=== PATIENT | female | born 1970 | race Caucasian/White ===

== ENCOUNTER 2020-09-04 22:08 | Emergency (ER) | payer MEDICAID ==
[~2020-09-04] VITALS: Ht 162.5 cm; Wt 95.3 kg
[2020-09-04] MEDS ORDERED: PENICILLIN VK500 MG PO (22:26)
== END 2020-09-04 22:36 | disposition home or self-care (01) ==
LOC: ED 22:08
DX: K02.9 Dental caries, unspecified (principal); K08.89 Other specified disorders of teeth and supporting structures

== ENCOUNTER 2020-09-19 16:32 | Emergency (ER) | payer OTHER ==
[~2020-09-19] VITALS: Ht 160 cm; Wt 94.3 kg
[~2020-09-19 16:32] MED LIST: PENICILLIN VK500 MG PO
== END 2020-09-19 17:43 | disposition home or self-care (01) ==
LOC: ED 16:32
DX: K08.89 Other specified disorders of teeth and supporting structures (principal); I10 Essential (primary) hypertension; E11.9 Type 2 diabetes mellitus without complications; Z79.2 Long term (current) use of antibiotics; Z98.890 Other specified postprocedural states

== ENCOUNTER 2020-10-11 12:44 | Emergency (ER) | payer OTHER ==
[~2020-10-11] VITALS: Ht 160 cm; Wt 93.0 kg
[2020-10-11] MEDS ORDERED: IBU800 MG PO (13:40)
[2020-10-11] MEDS ORDERED: PERCOCET 5-3251 EACH PO (13:40)
[2020-10-11] MEDS ORDERED: CLEOCIN HCL150 MG PO (13:40)
== END 2020-10-11 13:48 | disposition home or self-care (01) ==
LOC: ED 12:44
DX: K04.7 Periapical abscess without sinus (principal); Z79.2 Long term (current) use of antibiotics

== ENCOUNTER 2020-10-23 18:23 | Emergency (ER) | payer OTHER ==
[~2020-10-23] VITALS: Ht 160 cm; Wt 93.0 kg
[~2020-10-23 18:23] MED LIST changes: +CLEOCIN HCL150 MG PO; +IBU800 MG PO; +PERCOCET 5-3251 EACH PO
[2020-10-23] MEDS ORDERED: AUGMENTIN 875875 MG PO (19:16)
== END 2020-10-23 19:20 | disposition home or self-care (01) ==
LOC: ED 18:23
DX: K08.89 Other specified disorders of teeth and supporting structures (principal); I10 Essential (primary) hypertension; E11.9 Type 2 diabetes mellitus without complications; E03.9 Hypothyroidism, unspecified; Z98.890 Other specified postprocedural states; Z79.899 Other long term (current) drug therapy

== ENCOUNTER 2021-03-08 04:16 | Emergency (ER) | payer OTHER ==
[~2021-03-08] VITALS: Ht 162.5 cm; Wt 93.4 kg
[~2021-03-08 04:16] MED LIST changes: +AUGMENTIN 875875 MG PO
== END 2021-03-08 06:35 | disposition left against medical advice (07) ==
LOC: ED 04:16
DX: S00.11XA Contusion of right eyelid and periocular area, initial encounter (principal); Z79.2 Long term (current) use of antibiotics; Z79.899 Other long term (current) drug therapy; W19.XXXA Unspecified fall, initial encounter; Y93.89 Activity, other specified; Y92.89 Other specified places as the place of occurrence of the external cause; Y99.8 Other external cause status

== ENCOUNTER → 2021-05-26 | Outpatient (CLI) | payer OTHER | END | disposition home or self-care (01) | LOC: COVID19 15:04 | PROVIDERS: ATTEND Internal Medicine | DX: Z11.52 Encounter for screening for COVID-19 (principal) ==

== ENCOUNTER → 2021-06-04 | Outpatient (CLI) | payer OTHER ==
[2021-06-05 07:06] LABS: HEP B CORE AB, IGM Negative (Negative); HEPATITIS B SURFACE AG Negative (Negative)
[2021-06-09 08:49] LABS: HEPATITIS C VIRUS ANTIBODY >11.0 s/co (0.0-0.9)
== END | disposition home or self-care (01) ==
LOC: LAB 07:50
PROVIDERS: ATTEND Internal Medicine
DX: M47.816 Spondylosis without myelopathy or radiculopathy, lumbar region (principal); M25.78 Osteophyte, vertebrae; R74.8 Abnormal levels of other serum enzymes; R06.02 Shortness of breath

== ENCOUNTER → 2021-06-15 | Outpatient (CLI) | payer OTHER ==
[2021-06-16 08:08] LABS: RHEUMATOID ARTHRITIS FACTOR <10.0 IU/mL (<14.0)
[2021-06-16 20:07] LABS: HEPATITIS C QUANTITATION 5180000 IU/mL (.)
== END | disposition home or self-care (01) ==
LOC: LAB 09:46 → US 10:00
PROVIDERS: ATTEND Internal Medicine
DX: R76.8 Other specified abnormal immunological findings in serum (principal)

== ENCOUNTER → 2021-06-24 | Outpatient (CLI) | payer OTHER ==
[2021-06-24 08:27] LABS: BILIRUBIN Negative (Negative); BLOOD Negative (Negative); CLARITY Cloudy (Clear); COLOR Yellow (Yellow); GLUCOSE Negative (Negative); KETONE Negative (Negative); LEUKO ESTERASE Negative (Negative); NITRITE Negative (Negative); PH 5.5 (4.5-8.0); UROBILINOGEN 0.2 E.U./dl (0.0-1.0)
[2021-06-24 08:37] LABS: BACTERIA 1+; CALCIUM OXALATE CRYSTALS 1+
[2021-06-24 08:38] LABS: MUCOUS 2+
== END | disposition home or self-care (01) ==
LOC: LAB 07:52
PROVIDERS: ATTEND Internal Medicine
DX: B18.2 Chronic viral hepatitis C (principal)

== ENCOUNTER → 2021-10-16 | Outpatient (CLI) | payer OTHER ==
[2021-10-16 10:56] LABS: BASO # 0.1 10*3/uL (0.0-0.1); BASO % 0.8 % (0.0-1.0); EOS # 0.8 10*3/uL (0.0-0.4); EOS % 9.2 % (1.0-4.0); HEMATOCRIT 42.8 % (37.0-47.0); LYMPH # 1.8 10*3/uL (1.3-4.4); LYMPH % 20.1 % (27.0-41.0); MEAN CELL VOLUME 92.2 fl (81.0-99.0); MEAN CORPUSCULAR HGB 31.3 pg (27.0-31.0); MEAN CORPUSCULAR HGB CONC 33.9 g/dl (33.0-37.0); MEAN PLATELET VOLUME 12.9 fl (9.6-12.3); MONO # 0.7 10*3/uL (0.1-1.0); MONO % 7.3 % (3.0-9.0); NEUT # 5.7 10*3/uL (2.3-7.9); NEUT % 62.1 % (47.0-73.0); PLATELET COUNT AUTOMATED 163 10*3/uL (130-400); RED BLOOD COUNT 4.64 10*6/uL (4.10-5.10); RED CELL DISTRI WIDTH 11.6 % (0-14.5); WHITE BLOOD COUNT 9.2 10*3/uL (4.8-10.8)
[2021-10-16 11:04] LABS: URINE AMPHETAMINES < 1000 (1000ng/ml); URINE BARBITURATES < 200 (200ng/ml); URINE BENZODIAZEPINES < 200 (200ng/ml); URINE CANNABINOIDS (THC) > 50 (50ng/ml); URINE COCAINE < 300 (300ng/ml); URINE METHADONE < 300 (300ng/ml); URINE OPIATES < 300 (300ng/ml)
[2021-10-16 11:11] LABS: URINE PHENCYCLIDINE < 25 (25ng/ml)
[2021-10-16 11:25] LABS: BUN 25 mg/dl (7-24); CHLORIDE 112 mmol/L (98-107); POTASSIUM 4.3 mmol/L (3.5-5.1); SODIUM 138 mmol/L (136-145)
[2021-10-16 11:35] LABS: ALKALINE PHOSPHATASE 166 U/L (45-117); CREATININE 0.71 mg/dL (0.55-1.02); FREE T4 0.92 ng/dl (0.76-1.46); IRON 146 ug/dL (50-170); SGOT/AST 21 IU/L (3-35); SGPT/ALT 36 U/L (12-78); TOTAL IRON BINDING CAPACITY 360 ug/dl (250-450); TOTAL PROTEIN 7.5 gm/dL (6.4-8.2)
[2021-10-16 12:00] LABS: FERRITIN 69.7 ng/mL (10.0-291.0)
[2021-10-17 04:03] LABS: RHEUMATOID FACTOR <10.0 IU/mL (<14.0)
[2021-10-17 08:05] LABS: HEP B CORE AB, IGM Negative (Negative); HEPATITIS B SURFACE AB Non Reactive (.); HEPATITIS B SURFACE AG Negative (Negative); HEPATITIS C VIRUS ANTIBODY >11.0 s/co (0.0-0.9)
[2021-10-17 20:04] LABS: HCV LOG10 7.367 (.); HEPATITIS C QNT See Final Results IU/mL (.)
== END | disposition home or self-care (01) ==
LOC: LAB 10:13
PROVIDERS: Nurse Practitioner Family; ATTEND Internal Medicine
DX: B18.2 Chronic viral hepatitis C (principal)

== ENCOUNTER 2021-10-23 14:40 | Emergency (ER) | payer OTHER ==
[~2021-10-23] VITALS: Ht 160 cm; Wt 95.3 kg
[2021-10-23 15:08] LABS: BASO # 0.1 10*3/uL (0.0-0.1); BASO % 1.2 % (0.0-1.0); EOS # 0.7 10*3/uL (0.0-0.4); EOS % 7.9 % (1.0-4.0); HEMATOCRIT 39.7 % (37.0-47.0); LYMPH # 2.5 10*3/uL (1.3-4.4); LYMPH % 26.5 % (27.0-41.0); MEAN CELL VOLUME 92.1 fl (81.0-99.0); MEAN CORPUSCULAR HGB 31.8 pg (27.0-31.0); MEAN CORPUSCULAR HGB CONC 34.5 g/dl (33.0-37.0); MEAN PLATELET VOLUME 12.6 fl (9.6-12.3); MONO # 0.6 10*3/uL (0.1-1.0); MONO % 6.8 % (3.0-9.0); NEUT # 5.4 10*3/uL (2.3-7.9); NEUT % 57.2 % (47.0-73.0); PLATELET COUNT AUTOMATED 177 10*3/uL (130-400); RED BLOOD COUNT 4.31 10*6/uL (4.10-5.10); RED CELL DISTRI WIDTH 11.5 % (0-14.5); WHITE BLOOD COUNT 9.4 10*3/uL (4.8-10.8)
[2021-10-23 15:27] LABS: ACT PARTIAL THROMBO TIME 26.2 SECONDS (20.0-32.1)
[2021-10-23 15:40] LABS: BUN 19 mg/dl (7-24); CHLORIDE 109 mmol/L (98-107); CREATININE 0.82 mg/dL (0.55-1.02); POTASSIUM 4.1 mmol/L (3.5-5.1); SODIUM 141 mmol/L (136-145)
== END 2021-10-23 18:58 | disposition home or self-care (01) ==
LOC: ED 14:40
PROVIDERS: Emergency Medicine
DX: S39.92XA Unspecified injury of lower back, initial encounter (principal); W18.39XA Other fall on same level, initial encounter; Y93.89 Activity, other specified; Y92.89 Other specified places as the place of occurrence of the external cause; Y99.8 Other external cause status

== ENCOUNTER 2021-10-27 17:01 | Emergency (ER) | payer OTHER | END 2021-10-27 17:57 | disposition left against medical advice (07) | LOC: ED 17:01 | DX: Z53.21 Procedure and treatment not carried out due to patient leaving prior to being seen by health care provider (principal) ==

== ENCOUNTER 2021-10-29 11:22 | Emergency (ER) | payer OTHER ==
[~2021-10-29] VITALS: Ht 160 cm; Wt 95.7 kg
[2021-10-29] MEDS ORDERED: HYDROCODONE-AC1 EAC1 PO (14:04)
== END 2021-10-29 14:11 | disposition home or self-care (01) ==
LOC: ED 11:22
DX: M25.561 Pain in right knee (principal)

== ENCOUNTER 2021-12-11 08:01 | Emergency (ER) | payer OTHER ==
[~2021-12-11] VITALS: Ht 160 cm; Wt 86.2 kg
[~2021-12-11 08:01] MED LIST changes: +HYDROCODONE-AC1 EAC1 PO
[2021-12-11] MEDS ORDERED: ATORVASTATIN CA40 M1 PO (09:36)
[2021-12-11] MEDS ORDERED: CLONAZEPAM1 MG PO (09:36)
[2021-12-11] MEDS ORDERED: TRULICITY0.75 MG/0. SC (09:36)
[2021-12-11] MEDS ORDERED: DULOXETINE HCL60 MG PO (09:37)
[2021-12-11] MEDS ORDERED: GABAPENTIN800 MG PO (09:37)
[2021-12-11] MEDS ORDERED: ZETIA10 MG PO (09:37)
[2021-12-11] MEDS ORDERED: CYCLOBENZAPRINE10 MG PO (09:37)
[2021-12-11] MEDS ORDERED: LEVOTHYROXINE50 MCG PO (09:38)
[2021-12-11] MEDS ORDERED: METOPROLOL SUCC50 M1 PO (09:38)
[2021-12-11] MEDS ORDERED: LISINOPRIL2.5 MG PO (09:38)
[2021-12-11] MEDS ORDERED: PERCOCET 5-3251 EACH PO (11:02)
== END 2021-12-11 11:32 | disposition home or self-care (01) ==
LOC: ED 08:01
DX: S01.81XA Laceration without foreign body of other part of head, initial encounter (principal); Z79.899 Other long term (current) drug therapy; F17.200 Nicotine dependence, unspecified, uncomplicated; W18.39XA Other fall on same level, initial encounter; Y93.89 Activity, other specified; Y92.89 Other specified places as the place of occurrence of the external cause; Y99.8 Other external cause status

== ENCOUNTER 2021-12-11 18:26 | Emergency (ER) | payer OTHER ==
[~2021-12-11] VITALS: Ht 160 cm; Wt 86.2 kg
[~2021-12-11 18:26] MED LIST changes: +ATORVASTATIN CA40 M1 PO; +CLONAZEPAM1 MG PO; +CYCLOBENZAPRINE10 MG PO; +DULOXETINE HCL60 MG PO; +GABAPENTIN800 MG PO; +LEVOTHYROXINE50 MCG PO; +LISINOPRIL2.5 MG PO; +METOPROLOL SUCC50 M1 PO; +TRULICITY0.75 MG/0. SC; +ZETIA10 MG PO
== END 2021-12-11 20:46 | disposition home or self-care (01) ==
LOC: ED 18:26
DX: S90.31XA Contusion of right foot, initial encounter (principal); W20.8XXA Other cause of strike by thrown, projected or falling object, initial encounter; Y93.89 Activity, other specified; Y92.89 Other specified places as the place of occurrence of the external cause; Y99.8 Other external cause status

== ENCOUNTER 2021-12-20 12:42 | Emergency (ER) | payer OTHER ==
[~2021-12-20] VITALS: Wt 87.5 kg
== END 2021-12-20 13:42 | disposition home or self-care (01) ==
LOC: ED 12:42
DX: S92.354A Nondisplaced fracture of fifth metatarsal bone, right foot, initial encounter for closed fracture (principal); Z79.899 Other long term (current) drug therapy; X58.XXXA Exposure to other specified factors, initial encounter; Y93.89 Activity, other specified; Y92.89 Other specified places as the place of occurrence of the external cause; Y99.8 Other external cause status

== ENCOUNTER → 2021-12-22 | Outpatient (CLI) | payer OTHER | END | disposition home or self-care (01) | LOC: RAD 13:31 | PROVIDERS: ATTEND Internal Medicine | DX: S92.354D Nondisplaced fracture of fifth metatarsal bone, right foot, subsequent encounter for fracture with routine healing (principal); X58.XXXD Exposure to other specified factors, subsequent encounter ==

== ENCOUNTER 2022-01-08 12:51 | Emergency (ER) | payer OTHER ==
[~2022-01-08] VITALS: Ht 162.5 cm; Wt 83.9 kg
== END 2022-01-08 15:22 | disposition home or self-care (01) ==
LOC: ED 12:51
DX: S93.401A Sprain of unspecified ligament of right ankle, initial encounter (principal); Z79.899 Other long term (current) drug therapy; X58.XXXA Exposure to other specified factors, initial encounter; Y93.89 Activity, other specified; Y92.89 Other specified places as the place of occurrence of the external cause; Y99.8 Other external cause status

== ENCOUNTER 2022-02-13 16:47 | Emergency (ER) | payer OTHER ==
[~2022-02-13] VITALS: Ht 160 cm; Wt 83.0 kg
[2022-02-13] MEDS ORDERED: HYDROCODONE-AC1 EAC1 PO (17:38)
== END 2022-02-13 18:09 | disposition home or self-care (01) ==
LOC: ED 16:47
DX: S92.901A Unspecified fracture of right foot, initial encounter for closed fracture (principal); Z79.899 Other long term (current) drug therapy; W22.8XXA Striking against or struck by other objects, initial encounter; Y93.89 Activity, other specified; Y92.89 Other specified places as the place of occurrence of the external cause; Y99.8 Other external cause status

== ENCOUNTER 2022-08-24 21:41 | Emergency (ER) | payer OTHER ==
[~2022-08-24] VITALS: Ht 157.4 cm; Wt 72.6 kg
[2022-08-24] MEDS ORDERED: Bactroban Oint22 GM T (23:27)
[2022-08-24] MEDS ORDERED: TRAMADOL HCL50 MG PO (23:27)
[2022-08-24] MEDS ORDERED: CEPHALEXIN500 M1 PO (23:27)
== END 2022-08-24 23:42 | disposition home or self-care (01) ==
LOC: ED 21:41
DX: E11.621 Type 2 diabetes mellitus with foot ulcer (principal); M79.672 Pain in left foot; L97.528 Non-pressure chronic ulcer of other part of left foot with other specified severity

== ENCOUNTER → 2022-09-08 | Outpatient (CLI) | payer OTHER ==
[~2022-09-08] MED LIST changes: +Bactroban Oint22 GM T; +CEPHALEXIN500 M1 PO; +TRAMADOL HCL50 MG PO
[2022-09-08 12:31] LABS: URINE AMPHETAMINES Positive (1000ng/ml); URINE BARBITURATES Negative (200ng/ml); URINE BENZODIAZEPINES Negative (200ng/ml); URINE CANNABINOIDS (THC) Positive (50ng/ml); URINE COCAINE Negative (300ng/ml); URINE METHADONE Negative (300ng/ml); URINE OPIATES Negative (300ng/ml); URINE PHENCYCLIDINE Negative (25ng/ml)
== END | disposition home or self-care (01) ==
LOC: LAB 12:02
PROVIDERS: ATTEND Psychiatry & Neurology Psychiatry
DX: Z02.89 Encounter for other administrative examinations (principal); Z79.899 Other long term (current) drug therapy

== ENCOUNTER → 2023-02-22 | Outpatient (CLI) | payer OTHER | END | disposition home or self-care (01) | LOC: RAD 13:35 | PROVIDERS: ATTEND Internal Medicine | DX: M25.871 Other specified joint disorders, right ankle and foot (principal); M79.89 Other specified soft tissue disorders ==